=== PATIENT | male | born 1935 | race Caucasian/White ===

== ENCOUNTER 2016-11-02 12:43 | Day surgery (SDC) | payer MEDICARE ==
[~2016-11-02 12:43] MED LIST: ALLO100T PO; AMLO5TAB2 PO; APIX5TAB PO; ASPI-110 PO; ATOR40TA16 PO; CALC600T13 PO; GETGO ROLLING W1 MI1; HYDR-3516 PO; MISC-163 XX; MISC1CAP2 PO; OMEP20TA PO; SENN8.6T15 PO; VITA10004 PO; VITA400T PO
[2016-11-02 13:33] VITALS: BP 125/74; PULSE 68; RESP 20; TEMP 97.6; O2SAT 94
[2016-11-02] MEDS ORDERED: TRAM50TA PO (13:33)
[2016-11-02] MEDS ORDERED: TRIAMCINOLONE ACETONIDE 40 MG/ML VIAL ONE (14:28)
[2016-11-02] MEDS ORDERED: SODIUM CHLORIDE 0.9% INJ 10 ML ONE (14:39)
[2016-11-02 15:00] VITALS: BP 126/76; PULSE 68; RESP 16; TEMP 98.4; O2SAT 94
--- NOTE | 2016-11-02 15:01 | PD.RAD ---
Post Procedure Progress Note Procedure Date: Nov 02, 2016 Supervising Radiologist: Hill Luna Plan of Activity See PACS Report for procedural detail/treatment Spinal Procedure Epidural Steroid Injection L3-L4 Hill Luna MD Nov 02, 2016 15:00
[2016-11-02] MEDS ORDERED: IOHEXOL 300 MG/ML 50 ML BTL (for RAD DIAG) ONE (15:12)
--- NOTE | 2016-11-02 16:08 | RADRPT ---
EXAM DATE/TIME: 11/02/2016 14:35 [facility] COMPARISON: No previous studies available for comparison. INDICATIONS : Patient with a history of lower back pain. MEDICAL HISTORY : COPD AFIB HTN Degenerative disc disorder Sleep apnea SURGICAL HISTORY : Rt hip replacement Lumbar laminectomy ENCOUNTER: Initial ACUITY: >1 year PAIN SCORE: 0/10 FLUORO TIME: 2.1 minutes IMAGE SERIES: 1 CONTRAST: 1 cc Omnipaque (iohexol) 300 ACCESS LEVEL: L3 MEDICATIONS: 1.) 40 mg triamcinolone (Kenalog) IA 2.) 2 cc Lidocaine IA RESPONSE: Pre procedure pain level was 0/10. Post procedure pain level was 0/10. PROCEDURE : 1. Fluoroscopically guided epidural injection. The risks, benefits and alternatives to the procedure were explained and verbal and written consent w as obtained. The site was prepped in sterile fashion. Full sterile technique was used, including ca p, mask, sterile gloves and gown and a large sterile sheet. Hand hygiene and 2% chlorhexidine and/or betadine/alcohol prep was utilized per protocol for cutaneous antisepsis. The skin and subcutaneous tissues were infiltrated with local anesthetic solution. With fluoroscopic guidance the targeted epidural space was localized and positive contrast was inject ed to confirm epidural spread. Following this the prescribed medication was injected surrounding the space. The patient's preprocedure pain and post procedure pain levels were recorded. CONCLUSION: Uncomplicated fluoroscopically guided epidural injection as above. Hill Luna MD on November 02, 2016 at 16:06 Board Certified Radiologist. This report was verified electronically.
== END 2016-11-02 17:00 | disposition home or self-care (01) ==
LOC: HROP 12:43 → HRIP 12:44 → HROP 17:00
PROVIDERS: ATTEND Orthopaedic Surgery
DX: M54.5 Low back pain (principal); I10 Essential (primary) hypertension; I48.91 Unspecified atrial fibrillation; J44.9 Chronic obstructive pulmonary disease, unspecified; G47.30 Sleep apnea, unspecified
CPT/HCPCS: 62323; J3301; Q9967; 77002

== ENCOUNTER 2017-01-07 18:18 | Emergency (ER) | payer MEDICARE ==
[~2017-01-07] VITALS: Ht 188 cm; Wt 100.0 kg
[~2017-01-07 18:18] MED LIST changes: -HYDR-3516 PO; -MISC-163 XX; -SENN8.6T15 PO; +TRAM50TA PO
[2017-01-07 18:20] VITALS: BP 122/61; TEMP 98; O2SAT 98
[2017-01-07] MEDS ORDERED: LIDOCAINE HCL 1% 50 ML VIAL INFIL ONE (19:30)
[2017-01-07] MEDS ORDERED: TETANUS/DIPHTHERIA TOXOID ADULT 0.5 ML VIAL IM ONE (20:00)
--- NOTE | 2017-01-07 20:02 | PD ---
HPI Chief Complaint: Laceration/Skin Injury Time Seen by Provider: 19:00 Travel History International Travel<30 days: No Contact w/Intl Traveler<30days: No Traveled to known affect area: No History of Present Illness HPI 81 year old male presents to ED with left thumb laceration caused by kitchen knife. Patient reports he cut thumb while cutting vegetables approximately 2 hours ago. He came to the ED after he was unable to get the area to stop bleeding. He reports mild pain at site, has full ROM & normal sensation. PFSH Past Medical History Hx Anticoagulant Therapy: Yes (ELIQUIS) Asthma: No Heart Rhythm Problems: No Cancer: No Cardiac Catheterization: Yes Cardiovascular Problems: Yes (ATRIAL FIBRILLATION, CAD, CARDIAC STENT) High Cholesterol: Yes Chest Pain: Yes COPD: No Diabetes: Yes (type 2) Patient Takes Glucophage: No Diminished Hearing: No Endocrine: No Gastrointestinal Disorders: Yes GERD: Yes Genitourinary: Yes (BPH) Hepatitis: No Hiatal Hernia: Yes Hypertension: No Immune Disorder: No Kidney Stones: Yes Medical other: No Musculoskeletal: Yes Neurologic: No Psychiatric: No Reproductive: No Respiratory: Yes (SLEEP APNEA--CPAP) Renal Failure: Yes Sleep Apnea: Yes (C-PAP AT NIGHT) Thyroid Disease: No Ulcer: No Past Surgical History Abdominal Surgery: No AICD: No Appendectomy: No Body Medical Devices: CARDIAC STENT Cardiac Surgery: No Cholecystectomy: No Coronary Stent: Yes Ear Surgery: No Endocrine Surgery: No Eye Surgery: Yes (LEFT CATARACT SURGERY) Genitourinary Surgery: No Gynecologic Surgery: No Joint Replacement: Yes (TOTAL LEFT KNEE, LEFT TOTAL KNEE) Neurologic Surgery: No Oral Surgery: No Pacemaker: No Thoracic Surgery: No Other Surgery: Yes Social History Alcohol Use: Yes (3-4 GLASSES OF WINE PER WEEK) Tobacco Use: No Substance Use: No Allergies-Medications (Allergen,Severity, Reaction): Coded Allergies: No Known Allergies (Verified , 01/07/17) Reported Meds & Prescriptions Reported Meds & Active Scripts Active Walker Rolling/GetGo (Device) 1 Mis Mis 1 Ea .ROUTE DIRECTED Reported Tramadol (Tramadol HCl) 50 Mg Tab 50 Mg PO Q4H PRN Amlodipine (Amlodipine Besylate) 5 Mg Tab 5 Mg PO HS [place] (Misc Natural Products) 1 Cap 450 Mg PO DAILY Atorvastatin (Atorvastatin Calcium) 40 Mg Tab 40 Mg PO HS Allopurinol 100 Mg Tab 100 Mg PO DAILY Vitamin B12 Tr (Cyanocobalamin) 1,000 Mcg Tab 1,000 Mcg PO DAILY Aspirin 81 (Aspirin) 81 Mg Tabdr 81 Mg PO DAILY Vitamin D-3 (Cholecalciferol) 400 Unit Tab 800 Units PO DAILY Calcium 600 Mg Tab 600 Mg PO DAILY Omeprazole 20 Mg Tab 20 Mg PO DAILY Eliquis (Apixaban) 5 Mg Tab 5 Mg PO BID Review of Systems Except as stated in HPI: all other systems reviewed are Neg Physical Exam Narrative GENERAL: well appearing elderly man. SKIN: Warm and dry. 2 cm laceration to left thumb medial aspect. HEAD: Normocephalic. EYES: No scleral icterus. No injection or drainage. NECK: Supple, trachea midline. No JVD or lymphadenopathy. CARDIOVASCULAR: Regular rate and rhythm without murmurs, gallops, or rubs. RESPIRATORY: Breath sounds equal bilaterally. No accessory muscle use. GASTROINTESTINAL: Abdomen soft, non-tender, nondistended. MUSCULOSKELETAL: No cyanosis, or edema. Left thumb: 2 cm lac medial aspect, normal sensation, full ROM, No visualized tendon injury, brisk cap refill, digit warm. BACK: Nontender without obvious deformity. No CVA tenderness. Data Data Last Documented VS Vital Signs Date Time Temp Pulse Resp B/P Pulse Ox O2 Delivery O2 Flow Rate FiO2 01/07/17 18:20 98.0 84 16 122/61 98 Orders Lidocaine 1% Inj (50 Ml) (Xylocaine 1% I (01/07/17 19:30) MDM Medical Decision Making Medical Screen Exam Complete: Yes Emergency Medical Condition: Yes Differential Diagnosis thumb lac vs tendon lac Narrative Course 81 year old male with left thumb lac caused by kitchen knife. Lac repair in ED. Tetanus updated. Procedures Procedure Narrative LACERATION LOCATION: [left thumb] LENGTH: [2.5 cm] NUMBER OF STITCHES/ANGEL: [4] REPAIR: The area of the laceration was prepped with Betadine and sterilely draped. The laceration was infiltrated with [1% lidocaine]. The wound was copiously irrigated and explored without evidence of foreign body, tendon injury or neurovascular injury. The wound was closed using [4-0 ethilon]. This was a [single] layer repair. A sterile dressing was applied. The patient was advised to keep the dressing clean and dry. Patient tolerated the procedure well. Diagnosis Primary Impression: Thumb laceration Qualified Code: S61.012A - Thumb laceration, left, initial encounter Patient Instructions: Finger Laceration (ED), General Instructions Disposition: 01 DISCHARGE HOME Condition: Stable Jennifer Ryan January 07, 2017 20:02
== END 2017-01-07 20:15 | disposition home or self-care (01) ==
LOC: NEPD 18:18
DX: S61.012A Laceration without foreign body of left thumb without damage to nail, initial encounter (principal); E11.9 Type 2 diabetes mellitus without complications; E78.00 Pure hypercholesterolemia, unspecified; G47.30 Sleep apnea, unspecified; N19 Unspecified kidney failure; W26.0XXA Contact with knife, initial encounter; Y93.G1 Activity, food preparation and clean up; Z23 Encounter for immunization; Z79.01 Long term (current) use of anticoagulants; Z86.79 Personal history of other diseases of the circulatory system; Z87.19 Personal history of other diseases of the digestive system; Z87.438 Personal history of other diseases of male genital organs; Z87.442 Personal history of urinary calculi; Z87.39 Personal history of other diseases of the musculoskeletal system and connective tissue
CPT/HCPCS: 12001; 90471; 90714

== ENCOUNTER → 2017-04-13 | Day surgery (SDC) | payer MEDICARE ==
[~2017-04-13] MED LIST changes: +BUPIVACAINE HCL PF 0.75% 30 ML VIAL ONE; -CALC600T13 PO; +CALC600T25 PO; +CHOL1CAP6 PO; -MISC1CAP2 PO; +PROPOFOL 200 MG/20 ML AMP IV ONE; +SAW450CA2 PO; +TRIAMCINOLONE ACETONIDE 40 MG/ML VIAL I-ARTICULR ONE; -VITA400T PO
--- NOTE | 2017-04-15 07:48 | M6 ---
cc: KEREN ANDERSON M.D. DATE: 04/13/17 DATE OF : 1935 PROCEDURE Fluoroscopically guided injection left lumbar facet joints (left L2-3, L3-4, L4-5 and L5-S1 facet joints). History and physical was completed and signed. Consent was signed. Procedure site was marked. Medications were listed and reconciled. Pain score was recorded. Allergies were noted. Time out was taken. Fluoroscopy time was recorded where applicable. Sedation was administered or directed by Dr. Anderson. The patient was given oxygen. The patient was monitored by a registered nurse. Total procedure time was greater than 15 minutes. PROCEDURE NOTE: IV was started, blood pressure cuff, pulse oximeter and EKG were applied. The patient was placed in the prone position on a Yoni table sedated with small amounts of propofol titrated to effect. Vital signs were monitored and remained stable throughout the procedure. The lumbar area was prepped with alcohol and 10% Betadine solution and draped with sterile drapes. Fluoroscopy was used in a Vipul dog view to clearly visualize the left lumbar facet joints at L2-3, L3-4, L4-5 and L5-S1. Separate sterile 3-1/2 inch 25-gauge spinal needles were advanced into these joints under fluoroscopic guidance. There was negative aspiration for blood or any other type of fluid and at each location the patient was given 1 mL of Marcaine 0.75% which contained 10 mg of Kenalog. Following the procedure the patient was taken to the recovery room with stable vital signs neurologically intact. He will be evaluated immediately and with followup to determine if he has a subjective decrease in his usual pain and a corresponding objective increase in his functional capabilities. WMD EDDIE Deal/NATHALIE /8:21 AM /7:42 AM
== END | disposition home or self-care (01) ==
LOC: PHSDC 07:09
PROVIDERS: ATTEND Pain Medicine Interventional Pain Medicine
DX: M43.16 Spondylolisthesis, lumbar region (principal)
CPT/HCPCS: 64493; 64494; 64495; 99152; J3301

== ENCOUNTER → 2017-04-24 | Day surgery (SDC) | payer MEDICARE ==
[~2017-04-24] MED LIST changes: +BUPIVACAINE HCL PF 0.5% 30 ML VIAL ONE; -BUPIVACAINE HCL PF 0.75% 30 ML VIAL ONE; -GETGO ROLLING W1 MI1; -TRAM50TA PO; +methylPREDNISolone ACETATE 40 MG/ML VIAL I-ARTICULR ONE
--- NOTE | 2017-04-25 10:06 | M6 ---
cc: KEREN ANDERSON M.D. DATE 04/24/2017 DATE OF 1935 PROCEDURE Fluoroscopically guided injection left sacroiliac joint. History and physical was completed and signed. Consent was signed. Procedure site was marked. Medications were listed and reconciled. Pain score was recorded. Allergies were noted. Time out was taken. Fluoroscopy time was recorded where applicable. Sedation was administered or directed by Dr. Anderson. The patient was given oxygen. The patient was monitored by a registered nurse. Total procedure time was greater than 15 minutes. PROCEDURE NOTE IV was started. Blood pressure cuff, pulse oximeter and EKG were applied. The patient was placed in the prone position on a Yoni table, sedated with small amounts of propofol titrated to effect. Vital signs were monitored and remained stable throughout the procedure. The sacral area was prepped with alcohol and 10% Betadine solution and draped with sterile drapes. Fluoroscopy was used shooting from medial to lateral to clearly visualize the posterior joint line of the left sacroiliac joint. A sterile 5-inch, 22-gauge spinal needle was advanced into the joint under fluoroscopic guidance. There was negative aspiration for blood or any other type of fluid and at that location the patient was given 2 mL of 0.5% Marcaine, 20 mg of Depo-Medrol, 20 mg of Kenalog. Following this the patient was taken to the recovery room with stable vital signs, neurologically. W. Herman Anderson MD WRM/SSB /9:49 AM /9:59 AM
== END | disposition home or self-care (01) ==
LOC: PHSDC 07:54
PROVIDERS: ATTEND Pain Medicine Interventional Pain Medicine
DX: M43.16 Spondylolisthesis, lumbar region (principal)
CPT/HCPCS: 99152; G0260; J1030; J3301; 27096

== ENCOUNTER 2017-06-04 07:27 | Day surgery (SDC) | payer MEDICARE ==
[~2017-06-04] VITALS: Ht 188 cm; Wt 96.8 kg
[2017-06-04] VITALS (8 sets, daily range): BP systolic 120–148; BP diastolic 61–81; PULSE 51–73; RESP 16–20; TEMP 97.5–97.6; O2SAT 93–97
[~2017-06-04 07:27] MED LIST changes: -BUPIVACAINE HCL PF 0.5% 30 ML VIAL ONE; -PROPOFOL 200 MG/20 ML AMP IV ONE; -TRIAMCINOLONE ACETONIDE 40 MG/ML VIAL I-ARTICULR ONE; -methylPREDNISolone ACETATE 40 MG/ML VIAL I-ARTICULR ONE
[2017-06-04 08:08] LABS: AUTOMATED NEUTROPHIL # 2.5 TH/MM3 (1.8-7.7); BASOPHIL # 0.1 TH/MM3 (0-0.2); BASOPHIL % 1.3 % (0.0-2.0); EOSINOPHIL # 0.1 TH/MM3 (0-0.4); EOSINOPHIL % 2.9 % (0.0-4.0); HEMATOCRIT 41.4 % (39.0-51.0); HEMO FLAGS DIFF FINAL; LYMPH % 33.8 % (9.0-44.0); LYMPHOCYTE # 1.7 TH/MM3 (1.0-4.8); MEAN CELL VOLUME 86.5 FL (80.0-100.0); MEAN CORPUSCULAR HEMOGLOBIN 28.3 PG (27.0-34.0); MEAN CORPUSCULAR HGB CONC 32.7 % (32.0-36.0); MONO % 11.3 % (0.0-8.0); NEUT % 50.7 % (16.0-70.0); PLATELET COUNT 161 TH/MM3 (150-450); RED BLOOD COUNT 4.78 MIL/MM3 (4.50-5.90); RED CELL DISTRIBUTION WIDTH 16.4 % (11.6-17.2); WHITE BLOOD COUNT 4.9 TH/MM3 (4.0-11.0)
[2017-06-04] MEDS ORDERED: SODIUM CHLOR 0.9% 1000 ML IV SCH (08:15)
[2017-06-04 08:17] LABS: INTERNATIONAL NORMALIZED RATIO 0.9 RATIO; PROTHROMBIN TIME - PATIENT 10.1 SEC (9.8-11.6)
[2017-06-04] MEDS ORDERED: MIDAZOLAM HCL 5 MG/5 ML VIAL ONE (08:24)
[2017-06-04] MEDS ORDERED: LIDOCAINE HCL 1% 20 ML VIAL ONE (08:28)
--- NOTE | 2017-06-04 09:39 | PD.RAD ---
Post CT Procedure Prog Note Pre Procedure Diagnosis: (1) Mass of pleura Post Procedure Diagnosis: (1) Mass of pleura Procedure Date: Jun 04, 2017 Supervising Radiologist: Yuri Myles Proceduralist/Assist: tiana obregon Anesthesia: Conscious Sedation Plan of Activity Patient to Unit: [facility] Patient Condition: Good See PACS Report for procedural detail/treatment Yuri Myles MD Jun 04, 2017 09:39
[2017-06-04] MEDS ORDERED: oxyCODONE/ACETAMINOPHEN 5 MG/325 MG TAB PO PRN (09:45)
--- NOTE | 2017-06-04 10:50 | RADRPT ---
EXAM DATE/TIME: 06/04/2017 10:26 [facility] COMPARISON: CT NEEDLE BIOPSY LUNG, RIGHT, June 04, 2017, 8:58. INDICATIONS : Post needle biopsy of right lung MEDICAL HISTORY : Emphysema. Gastroesophageal reflux disease. CAD. SURGICAL HISTORY : Coronary artery stent. ENCOUNTER: Subsequent ACUITY: 1 day PAIN SCORE: 0/10 LOCATION: Right chest FINDINGS: A single frontal expiratory view of the chest was performed. The lungs are symmetrically aerated and clear. No evidence of pneumothorax. Mediastinal structures are in the midline. The cardio-mediastinal contours and bronchopulmonary markings are unremarkable for an expiratory exam . Osseous structures are intact. CONCLUSION: Negative for pneumothorax. Aravind Gomez MD FACR on June 04, 2017 at 10:47 Board Certified Radiologist. This report was verified electronically.
--- NOTE | 2017-06-04 15:59 | RADRPT ---
EXAM DATE/TIME: 06/04/2017 08:58 [facility] COMPARISON: No previous studies available for comparison. INDICATIONS : Right lumg mass. SEDATION TIME: 30 minutes BIOPSY SITE: Right lung. MEDICATION(S): 1.) 1.5 mg midazolam (Versed) IV 2.) 75 mcg fentanyl (Sublimaze) IV DEVICE(S): 1.) 18 gauge Law blunt needle 2.) 20 gauge Temno core biopsy needle MEDICAL HISTORY : Melanoma. SURGICAL HISTORY : Orthopedic. ENCOUNTER: Initial ACUITY: 1 day PAIN SCORE: 0/10 LOCATION: Right chest A total of two core specimen(s) were obtained and sent to the laboratory for pathologic evaluation. PROCEDURE: 1. CT guided lung biopsy. 2. Conscious sedation with continuous EKG and oximetry monitoring. 3. EKG and oximetry remained stable throughout the procedure. Prior to the procedure informed consent was obtained. Any appropriate prior imaging studies were rev iewed. Using automated exposure control and adjustment of the mA and/or kV according to patient size, radiation dose was kept as low as reasonably achievable to obtain optimal diagnostic quality images. DICOM format image data is available electronically for review and comparison. The site was prepped in a sterile fashion. Full sterile technique was used, including cap, mask, harman rile gloves and gown and a large sterile sheet. Hand hygiene and 2% chlorhexidine and/or betadine/al cohol prep was utilized per protocol for cutaneous antisepsis. The skin and subcutaneous tissues wer e infiltrated with local anesthetic solution. With CT guidance the previously identified target was localized. Biopsy was performed using the presc ribed needle as above. Adequate hemostasis was obtained with compression at the puncture site. Follow-up CT scan reveals no pneumothorax. Conscious sedation was performed with the prescribed dosages and duration as above in the presence of an independent trained radiology nurse to assist in the monitoring of the patient. EKG and oximetry remained stable throughout the procedure. The patient tolerated the procedure well and there were no complications. The patient was sent to Radiology Outpatient Unit in stable condition. CONCLUSION: Uncomplicated CT guided biopsy of the peripherally based right posterior density which contains calci fications. 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 Yuri Myles MD on June 04, 2017 at 15:57 Board Certified Radiologist. This report was verified electronically.
== END 2017-06-04 14:23 | disposition home or self-care (01) ==
LOC: HRAD 07:27 → HRIP 07:32 → HRAD 14:23
PROVIDERS: ATTEND Internal Medicine Hematology & Oncology
DX: R91.8 Other nonspecific abnormal finding of lung field (principal); Z79.01 Long term (current) use of anticoagulants; Z95.5 Presence of coronary angioplasty implant and graft
CPT/HCPCS: 32405; 71010; 77012; 85025; 85610; 85730; 88305; J2250; J3010; J7030